=== PATIENT | male | born 1975 | race Caucasian/White ===

== ENCOUNTER 2025-06-15 16:18 | Inpatient (IN) | payer OTHER ==
[2025-06-15 16:42] VITALS: BMI 23.6
[2025-06-15] MEDS ORDERED: BENZOCAINE/MENTHOL (CHLORASEPTIC ) LOZENGE MM PRN (18:00)
[2025-06-15] MEDS ORDERED: P-EPHED 60MG/TRIPROLIDI 2.5MG TABLET PO PRN (18:00)
[2025-06-15] MEDS ORDERED: BENZONATATE 200 MG CAPSULE PO PRN (18:00)
[2025-06-15] MEDS ORDERED: guaiFENesin 600 MG TABLET.ER (FP) PO PRN (18:00)
[2025-06-15] MEDS ORDERED: DICYCLOMINE HCL 10 MG CAPSULE PO PRN (18:00)
[2025-06-15] MEDS ORDERED: ONDANSETRON *ODT* 4 MG TABLET SL PRN (18:00)
[2025-06-15] MEDS ORDERED: NALOXONE (NARCAN) HCL 4 MG/0.1 ML SPRAY NS PRN (18:00)
[2025-06-15] MEDS ORDERED: ACETAMINOPHEN 325 MG TABLET (FP) PO PRN (18:00)
[2025-06-15] MEDS ORDERED: LOPERAMIDE HCL 2 MG CAPSULE PO PRN (18:00)
[2025-06-15] MEDS ORDERED: MAG HYDROX/AL HYDROX/SIMETH 30 ML UNIT-DOSE CUP PO PRN (18:00)
[2025-06-15] MEDS ORDERED: BISMUTH SUBSALICYLATE 524 MG/30 ML PO PRN (18:00)
[2025-06-15] MEDS ORDERED: POLYETHYLENE GLYCOL (HEALTHYLAX) 3350 17 GM PACKET PO PRN (18:00)
[2025-06-15] MEDS ORDERED: IBUPROFEN 400 MG TABLET (FP) PO PRN (18:00)
[2025-06-15] MEDS ORDERED: MAGNESIUM HYDROX 2400MG/30ML ORAL SUSPENSION 30 ML CUP PO PRN (18:00)
[2025-06-15] MEDS: NICOTINE POLACRILEX 2 MG LOZENGE BC PRN (20:49)
[2025-06-15] MEDS: levETIRAcetam 500 MG TABLET (FP) PO SCH (23:10)
[2025-06-15] MEDS: MELATONIN 5 MG TABLETS PO SCH (23:10)
[2025-06-15] MEDS: THIAMINE 100 MG TABLET PO SCH (23:11)
[2025-06-16] MEDS: METHOCARBAMOL 500 MG TABLET PO PRN (01:26)
[2025-06-16] MEDS: hydrOXYzine PAMOATE 25 MG CAPSULE (FP) PO PRN (01:26)
[2025-06-16] MEDS: PRENATAL VITAMINS W/ FOLIC ACID TABLET (FP) PO SCH (09:28)
[2025-06-16] MEDS: clonazePAM 1 MG ODT TABLETS SL SCH (11:07)
[2025-06-17] MEDS: NICOTINE POLACRILEX 2 MG GUM BUC PRN (08:02)
[2025-06-17] MEDS: IBUPROFEN 600 MG TABLET (FP) PO PRN (10:22)
[2025-06-17 10:25] VITALS: RESP 16
[2025-06-17 13:00] VITALS: BP 109/55; PULSE 78; TEMP 97.8
== END 2025-06-17 14:05 | disposition home or self-care (01) | DRG 776 ==
LOC: YASAS 16:18 → Y6N 20:20
PROVIDERS: ADMIT Neuromusculoskeletal Medicine & OMM; ATTEND Allergy & Immunology
PROC: HZ2ZZZZ Detoxification Services for Substance Abuse Treatment (ICD-10-PCS; principal; 2025-06-15)
DX: F13.20 Sedative, hypnotic or anxiolytic dependence, uncomplicated (principal); F17.210 Nicotine dependence, cigarettes, uncomplicated; F19.280 Other psychoactive substance dependence with psychoactive substance-induced anxiety disorder; F19.24 Other psychoactive substance dependence with psychoactive substance-induced mood disorder; F41.9 Anxiety disorder, unspecified; F41.0 Panic disorder [episodic paroxysmal anxiety]; G62.9 Polyneuropathy, unspecified; M19.041 Primary osteoarthritis, right hand; M19.042 Primary osteoarthritis, left hand
CPT/HCPCS: 93005; 93010